=== PATIENT | female | born 1970 | race Caucasian/White ===

== ENCOUNTER 2020-08-08 20:19 | Observation (INO) | payer OTHER ==
--- NOTE | 2020-08-08 20:43 | ED ---
General Adult HPI - General Chief complaint: Abdominal Pain Stated complaint: Abdominal pain Time Seen by Provider: 08/08/20 20:41 Source: patient, EMS Mode of arrival: EMS Limitations: no limitations - History of Present Illness Initial comments: Patient was transferred to our emergency department by ambulance from [facility]. Outside hospital providers, lab results and imaging report were all reviewed myself. Patient states that she has had intermittent epigastric abdominal pain for the past 3 weeks or so. Patient states that her pain has migrated to her right upper quadrant and become more constant and severe since yesterday morning. Patient also admits to having nausea and a couple of bouts of emesis since yesterday morning. Patient denies trauma or injury, fever or chills, headache, chest pain, dyspnea, cough or cold symptoms, diarrhea or constipation, bloody or melanotic stool, hematemesis, back or flank pain, dysuria/hematuria/urinary frequency/urinary symptoms, or any other symptoms or complaints. Patient had a CT abd/pelv done at the outside hospital today, which demonstrated "cholelithiasis, markedly distended gallbladder, gallbladder wall thickening and pericholecystic stranding, findings are consistent with acute cholecystitis". Patient's LFTs are fairly unremarkable and her WBC count is 12.3. Patient was given a dose of IV Zosyn at the outside hospital prior to transfer. - Related Data Home Medications Medication Instructions Recorded Confirmed L.acidoph,Paracasei, B.lactis 1 cap PO HS 08/08/20 08/08/20 [Probiotic] Loratadine [Claritin] 10 mg PO DAILY 08/08/20 08/08/20 Multivitamins, Thera [Multivitamin 1 tab PO HS 08/08/20 08/08/20 (formulary)] [place]-3 Fatty Acids/Fish Oil [Fish 1 cap PO HS 08/08/20 08/08/20 Oil 1,000 mg Softgel] Allergies Allergy/AdvReac Type Severity Reaction Status Date / Time No Known Allergies Allergy Verified 08/08/20 20:59 Review of Systems ROS Statement: Those systems with pertinent positive or pertinent negative responses have been documented in the HPI. ROS Other: All systems not noted in ROS Statement are negative. Past Medical History Past Medical History: GERD/Reflux History of Any Multi-Drug Resistant Organisms: None Reported Additional Past Surgical History / Comment(s): thyroid biopsy Past Psychological History: No Psychological Hx Reported Smoking Status: Never smoker Past Alcohol Use History: None Reported Past Drug Use History: None Reported General Exam Limitations: no limitations General appearance: alert, in no apparent distress Head exam: Present: atraumatic, normocephalic Eye exam: Present: normal appearance, EOMI ENT exam: Present: mucous membranes moist Neck exam: Present: other (Trachea is in midline) Respiratory exam: Present: normal lung sounds bilaterally. Absent: respiratory distress, wheezes, rales, rhonchi Cardiovascular Exam: Present: regular rate, normal rhythm, normal heart sounds, other (Normal radial pulses bilaterally) GI/Abdominal exam: Present: soft, other (Moderate right upper quadrant abdominal tenderness). Absent: distended, guarding, rebound Extremities exam: Absent: tenderness, pedal edema Back exam: Absent: CVA tenderness (R), CVA tenderness (L) Neurological exam: Present: alert, oriented X3. Absent: motor sensory deficit Psychiatric exam: Present: normal affect, normal mood Skin exam: Present: warm, dry, intact, normal color Course Vital Signs 08/08/20 20:22 Temperature 98.5 F Pulse Rate 83 Respiratory 16 Rate Blood Pressure 113/70 O2 Sat by Pulse 95 Oximetry - Reevaluation(s) Reevaluation #1: 08/08/20 21:01 Case, H&P and outside hospital test results were discussed with Dr. Flynn (general surgery). She accepts hospital admission. She recommends repeating the patient's labs, continuing IV Zosyn, ordering IV fluids and putting the patient on a clear liquid diet. She has no further recommendations at this time. Medical Decision Making - Medical Decision Making Outside hospital workup was highly suggestive for acute cholecystitis. Patient's history and physical examination are also suggestive of acute cholecystitis. Patient has no guarding or rebound tenderness on examination in the ED. Case was discussed with Dr. Flynn (general surgery), and she has accepted hospital admission. Disposition Clinical Impression: Acute cholecystitis, Cholelithiasis Disposition: ADMITTED IP TO THIS HOSP Condition: Stable Is patient prescribed a controlled substance at d/c from ED?: No Time of Disposition: 21:02
[2020-08-08] MEDS ORDERED: NALOXONE 0.4 MG/ML 1 ML VIAL IV PRN (21:05)
[2020-08-08] MEDS ORDERED: HYDROmorphone 1 MG/ML 1 ML SYRINGE IVP PRN (21:05)
[2020-08-08] MEDS ORDERED: ONDANSETRON 4 MG/2 ML VIAL IVP PRN (21:05)
[2020-08-08 21:23] LABS: Basophils % (A) 0 %; Eosinophils % (A) 0 %; HCT 40.5 % (34.0-46.0); Lymphocytes # (A) 0.6 k/uL (1.0-4.8); Lymphocytes % (A) 4 %; MCH 31.6 pg (25.0-35.0); MCHC 34.5 g/dL (31.0-37.0); MCV 91.7 fL (80.0-100.0); Mean Platelet Volume 6.1; Monocytes # (A) 0.7 k/uL (0-1.0); Monocytes % (A) 5 %; Neutrophils # (A) 11.5 k/uL (1.3-7.7); Neutrophils % (A) 89 %; Platelet Count 247 k/uL (150-450); RBC 4.41 m/uL (3.80-5.40); RDW 12.1 % (11.5-15.5); WBC 12.9 k/uL (3.8-10.6)
[2020-08-08] MEDS: SODIUM CHLORIDE 0.9% 1,000 ML IV SCH (21:24)
[2020-08-08 21:53] LABS: ALT 46 U/L (4-34); AST 114 U/L (14-36); African American GFR (CKD) >90 (>60 ml/min/1.73 sqM); Albumin 3.5 g/dL (3.5-5.0); Alkaline Phosphatase 114 U/L (38-126); Anion Gap 12 mmol/L; Blood Urea Nitrogen 15 mg/dL (7-17); Calcium 8.9 mg/dL (8.4-10.2); Carbon Dioxide 19 mmol/L (22-30); Chloride 102 mmol/L (98-107); Glucose 102 mg/dL (74-99); Lipase 160 U/L (23-300); Non-African American GFR(CKD) >90 (>60 ml/min/1.73 sqM); Potassium 3.9 mmol/L (3.5-5.1); Sodium 133 mmol/L (137-145); Total Bilirubin 1.6 mg/dL (0.2-1.3); Total Protein 6.7 g/dL (6.3-8.2)
[2020-08-09] MEDS ORDERED: PIPERACILLIN-TAZOBACTAM 4.5 GM in SODIUM CHLORIDE 0.9% 100 ML IVPB SCH ×2
[2020-08-09] MEDS: PIPERACILLIN-TAZOBACTAM 3.375 GM in SODIUM CHLORIDE 0.9% 100 ML IVPB SCH ×2 (01:56→10:34)
[2020-08-09 08:08] VITALS: RESP 16
[2020-08-09 10:24] LABS: Basophils % (A) 0 %; Eosinophils % (A) 0 %; HCT 42.1 % (34.0-46.0); HGB 13.3 gm/dL (11.4-16.0); Lymphocytes # (A) 0.7 k/uL (1.0-4.8); Lymphocytes % (A) 9 %; MCH 30.6 pg (25.0-35.0); MCHC 31.6 g/dL (31.0-37.0); MCV 96.6 fL (80.0-100.0); Mean Platelet Volume 6.6; Monocytes # (A) 0.4 k/uL (0-1.0); Monocytes % (A) 5 %; Neutrophils # (A) 6.3 k/uL (1.3-7.7); Neutrophils % (A) 84 %; Platelet Count 253 k/uL (150-450); RBC 4.36 m/uL (3.80-5.40); RDW 12.7 % (11.5-15.5); WBC 7.5 k/uL (3.8-10.6)
[2020-08-09] MEDS: SODIUM CHLORIDE 0.9% 1,000 ML IV SCH (10:36)
[2020-08-09 10:43] LABS: ALT 39 U/L (4-34); AST 53 U/L (14-36); African American GFR (CKD) >90 (>60 ml/min/1.73 sqM); Albumin 3.4 g/dL (3.5-5.0); Alkaline Phosphatase 99 U/L (38-126); Anion Gap 13 mmol/L; Blood Urea Nitrogen 15 mg/dL (7-17); Calcium 8.7 mg/dL (8.4-10.2); Carbon Dioxide 18 mmol/L (22-30); Chloride 105 mmol/L (98-107); Glucose 84 mg/dL (74-99); Non-African American GFR(CKD) >90 (>60 ml/min/1.73 sqM); Potassium 4.1 mmol/L (3.5-5.1); Sodium 136 mmol/L (137-145); Total Bilirubin 1.3 mg/dL (0.2-1.3); Total Protein 6.5 g/dL (6.3-8.2)
[2020-08-09] MEDS ORDERED: metroNIDAZOLE-NS PMX 500 MG in SALINE 1 100ML.BAG IVPB STA (12:17)
--- NOTE | 2020-08-09 12:33 | P.GSHP ---
History of Present Illness H&P Date: 08/09/20 CHIEF COMPLAINT: Cholecystitis HISTORY OF PRESENT ILLNESS: The patient is a 50-year-old female who presents with history of epigastric including right upper quadrant abdominal pain after eating a yogurt. She regularly eats cheese. She was presented as a transfer from outside institution for diagnostic studies with inflammation of the gallbladder. Since admission, she reports her abdominal pain has resolved. Initial white blood cell count over 12,000 now normal. She reports hunger. She was tolerating liquids yesterday. PAST MEDICAL HISTORY: Please see list PAST SURGICAL HISTORY: Please see list MEDICATIONS: Please see list ALLERGIES: Please see list SOCIAL HISTORY: Please see list FAMILY HISTORY: Please see list REVIEW OF ORGAN SYSTEMS: CONSTITUTIONAL: No reports of fevers or chills. HEENT: Denies any troubles with the vision or hearing. ENDOCRINE: No reports of hypothyroidism. No diabetes. RESPIRATORY: No recent pneumonias. CARDIOVASCULAR: Denies chest pain or palpitations GI: No blood in stools or constipation. MUSCULOSKELETAL: Has occasional joint pain including back pain. NEURO: No seizure disorders or headaches. No recent stroke. PSYCH: No depression or suicidal ideation. GENITOURINARY: No active blood in urine. No urinary hesitancy. HEMATOLOGIC: No personal or family history of DVTs or pulmonary emboli. SKIN: No skin cancer. PHYSICAL EXAM: VITAL SIGNS: Afebrile vital signs stable GENERAL: Well-developed pleasant in no acute distress. HEENT: No scleral icterus. Extraocular movements grossly intact. Moist buccal mucosa. NECK: Supple without lymphadenopathy. CHEST: Unlabored respirations. Equal bilateral excursions. CARDIOVASCULAR: Regular rate regular rhythm rhythm. Distal 2+ pulses. ABDOMEN: Soft, nondistended. No peritonitis. Nontender. MUSCULOSKELETAL: No clubbing, cyanosis, or edema. NEURO: Cranial nerves II to XII within normal limits. No focal or lateralizing signs. PSYCH: Alert and oriented to person, place and time. SKIN: Well-perfused good skin turgor. LABS: WBC over 12,000 now normal at over 8000. LFTs improving. ASSESSMENT: 1. Cholecystitis. PLAN: 1. Her abdominal pain has improved. 2. Trial of diet with clear liquids. 3. Low-fat diet described post discharge. 4. Outpatient cholecystectomy reviewed. 5. Antibiotic management with Zosyn and Flagyl reviewed. Past Medical History Past Medical History: GERD/Reflux History of Any Multi-Drug Resistant Organisms: None Reported Additional Past Surgical History / Comment(s): thyroid biopsy Past Anesthesia/Blood Transfusion Reactions: No Reported Reaction Past Psychological History: No Psychological Hx Reported Smoking Status: Never smoker Past Alcohol Use History: None Reported Past Drug Use History: None Reported - Past Family History Mother Family Medical History: Myocardial Infarction ([place]) Father Family Medical History: Myocardial Infarction ([place]) Medications and Allergies Home Medications Medication Instructions Recorded Confirmed Type L.acidoph,Paracasei, B.lactis 1 cap PO HS 08/08/20 08/08/20 History [Probiotic] Loratadine [Claritin] 10 mg PO DAILY 08/08/20 08/08/20 History Multivitamins, Thera [Multivitamin 1 tab PO HS 08/08/20 08/08/20 History (formulary)] [place]-3 Fatty Acids/Fish Oil [Fish 1 cap PO HS 08/08/20 08/08/20 History Oil 1,000 mg Softgel] Allergies Allergy/AdvReac Type Severity Reaction Status Date / Time No Known Allergies Allergy Verified 08/08/20 20:59 Surgical - Exam Vital Signs Temp Pulse Resp BP Pulse Ox 98.5 F 83 16 113/70 95 08/08/20 20:22 08/08/20 20:22 08/08/20 20:22 08/08/20 20:22 08/08/20 20:22 Results - Labs 08/09/20 10:12 08/09/20 10:12 Abnormal Lab Results - Last 24 Hours (Table) 08/08/20 08/08/20 08/09/20 Range/Units 21:19 21:19 10:12 WBC 12.9 H (3.8-10.6) k/uL Neutrophils # 11.5 H (1.3-7.7) k/uL Lymphocytes # 0.6 L 0.7 L (1.0-4.8) k/uL Sodium 133 L (137-145) mmol/L Carbon Dioxide 19 L (22-30) mmol/L Glucose 102 H (74-99) mg/dL Total Bilirubin 1.6 H (0.2-1.3) mg/dL AST 114 H (14-36) U/L ALT 46 H (4-34) U/L Albumin (3.5-5.0) g/dL 08/09/20 Range/Units 10:12 WBC (3.8-10.6) k/uL Neutrophils # (1.3-7.7) k/uL Lymphocytes # (1.0-4.8) k/uL Sodium 136 L (137-145) mmol/L Carbon Dioxide 18 L (22-30) mmol/L Glucose (74-99) mg/dL Total Bilirubin (0.2-1.3) mg/dL AST 53 H (14-36) U/L ALT 39 H (4-34) U/L Albumin 3.4 L (3.5-5.0) g/dL Diabetes panel 08/08/20 08/09/20 Range/Units 21:19 10:12 Sodium 133 L 136 L (137-145) mmol/L Potassium 3.9 4.1 (3.5-5.1) mmol/L Chloride 102 105 (98-107) mmol/L Carbon Dioxide 19 L 18 L (22-30) mmol/L BUN 15 15 (7-17) mg/dL Creatinine 0.58 0.55 (0.52-1.04) mg/dL Glucose 102 H 84 (74-99) mg/dL Calcium 8.9 8.7 (8.4-10.2) mg/dL AST 114 H 53 H (14-36) U/L ALT 46 H 39 H (4-34) U/L Alkaline Phosphatase 114 99 (38-126) U/L Total Protein 6.7 6.5 (6.3-8.2) g/dL Albumin 3.5 3.4 L (3.5-5.0) g/dL Calcium panel 08/08/20 08/09/20 Range/Units 21:19 10:12 Calcium 8.9 8.7 (8.4-10.2) mg/dL Albumin 3.5 3.4 L (3.5-5.0) g/dL Pituitary panel 08/08/20 08/09/20 Range/Units 21:19 10:12 Sodium 133 L 136 L (137-145) mmol/L Potassium 3.9 4.1 (3.5-5.1) mmol/L Chloride 102 105 (98-107) mmol/L Carbon Dioxide 19 L 18 L (22-30) mmol/L BUN 15 15 (7-17) mg/dL Creatinine 0.58 0.55 (0.52-1.04) mg/dL Glucose 102 H 84 (74-99) mg/dL Calcium 8.9 8.7 (8.4-10.2) mg/dL Adrenal panel 08/08/20 08/09/20 Range/Units 21:19 10:12 Sodium 133 L 136 L (137-145) mmol/L Potassium 3.9 4.1 (3.5-5.1) mmol/L Chloride 102 105 (98-107) mmol/L Carbon Dioxide 19 L 18 L (22-30) mmol/L BUN 15 15 (7-17) mg/dL Creatinine 0.58 0.55 (0.52-1.04) mg/dL Glucose 102 H 84 (74-99) mg/dL Calcium 8.9 8.7 (8.4-10.2) mg/dL Total Bilirubin 1.6 H 1.3 (0.2-1.3) mg/dL AST 114 H 53 H (14-36) U/L ALT 46 H 39 H (4-34) U/L Alkaline Phosphatase 114 99 (38-126) U/L Total Protein 6.7 6.5 (6.3-8.2) g/dL Albumin 3.5 3.4 L (3.5-5.0) g/dL Assessment and Plan (1) Elevated LFTs Current Visit: Yes Status: Acute Code(s): R79.89 - OTHER SPECIFIED ABNORMAL FINDINGS OF BLOOD CHEMISTRY SNOMED Code(s): 289174991 (2) Acute cholecystitis Current Visit: Yes Status: Acute Code(s): K81.0 - ACUTE CHOLECYSTITIS SNOMED Code(s): 51378139 (3) Cholelithiasis Current Visit: Yes Status: Acute Code(s): K80.20 - CALCULUS OF GALLBLADDER W/O CHOLECYSTITIS W/O OBSTRUCTION SNOMED Code(s): 075822295
--- NOTE | 2020-08-09 12:38 | P.DS ---
Providers Date of admission: 08/08/20 21:05 Expected date of discharge: 08/09/20 Attending physician: Danette Flynn Primary care physician: Avelino Laird MD - Discharge Diagnosis(es) (1) Elevated LFTs Current Visit: Yes Status: Acute (2) Acute cholecystitis Current Visit: Yes Status: Acute (3) Cholelithiasis Current Visit: Yes Status: Acute Hospital Course: CHIEF COMPLAINT: Cholecystitis HISTORY OF PRESENT ILLNESS: The patient is a 50-year-old female who presents with history of epigastric including right upper quadrant abdominal pain after eating a yogurt. She regularly eats cheese. She was presented as a transfer from outside institution for diagnostic studies with inflammation of the gallbladder. Since admission, she reports her abdominal pain has resolved. Initial white blood cell count over 12,000 now normal. She reports hunger. She was tolerating liquids yesterday. PAST MEDICAL HISTORY: Please see list PAST SURGICAL HISTORY: Please see list MEDICATIONS: Please see list ALLERGIES: Please see list SOCIAL HISTORY: Please see list FAMILY HISTORY: Please see list REVIEW OF ORGAN SYSTEMS: CONSTITUTIONAL: No reports of fevers or chills. HEENT: Denies any troubles with the vision or hearing. ENDOCRINE: No reports of hypothyroidism. No diabetes. RESPIRATORY: No recent pneumonias. CARDIOVASCULAR: Denies chest pain or palpitations GI: No blood in stools or constipation. MUSCULOSKELETAL: Has occasional joint pain including back pain. NEURO: No seizure disorders or headaches. No recent stroke. PSYCH: No depression or suicidal ideation. GENITOURINARY: No active blood in urine. No urinary hesitancy. HEMATOLOGIC: No personal or family history of DVTs or pulmonary emboli. SKIN: No skin cancer. PHYSICAL EXAM: VITAL SIGNS: Afebrile vital signs stable GENERAL: Well-developed pleasant in no acute distress. HEENT: No scleral icterus. Extraocular movements grossly intact. Moist buccal mucosa. NECK: Supple without lymphadenopathy. CHEST: Unlabored respirations. Equal bilateral excursions. CARDIOVASCULAR: Regular rate regular rhythm rhythm. Distal 2+ pulses. ABDOMEN: Soft, nondistended. No peritonitis. Nontender. MUSCULOSKELETAL: No clubbing, cyanosis, or edema. NEURO: Cranial nerves II to XII within normal limits. No focal or lateralizing signs. PSYCH: Alert and oriented to person, place and time. SKIN: Well-perfused good skin turgor. LABS: WBC over 12,000 now normal at over 8000. LFTs improving. ASSESSMENT: 1. Cholecystitis. PLAN: 1. Her abdominal pain has improved. 2. Trial of diet with clear liquids. 3. Low-fat diet described post discharge. 4. Outpatient cholecystectomy reviewed. 5. Antibiotic management with Zosyn and Flagyl reviewed 6. I personally reviewed gallstone diet sheet including menu options. She had tolerated diet. Patient was clinically stable for discharge. Patient Condition at Discharge: Stable Plan - Discharge Summary Discharge Rx Participant: No New Discharge Prescriptions: New RX: Ibuprofen [Motrin] 600 mg PO Q8HR PRN #30 tab PRN Reason: Pain Continue RX: Loratadine [Claritin] 10 mg PO DAILY RX: L.acidoph,Paracasei, B.lactis [Probiotic] 1 cap PO HS Discontinued Multivitamins, Thera [Multivitamin (formulary)] 1 tab PO HS [place]-3 Fatty Acids/Fish Oil [Fish Oil 1,000 mg Softgel] 1 cap PO HS Discharge Medication List RX: L.acidoph,Paracasei, B.lactis [Probiotic] 1 cap PO HS 08/08/20 [History] RX: Loratadine [Claritin] 10 mg PO DAILY 08/08/20 [History] RX: Ibuprofen [Motrin] 600 mg PO Q8HR PRN #30 tab 08/09/20 [Rx] Follow up Appointment(s)/Referral(s): Danette Flynn MD [STAFF PHYSICIAN] - 08/13/20 Avelino Laird MD [Primary Care Provider] - 1-2 days Patient Instructions/Handouts: Cholecystitis (ED), Biliary Colic (GEN), Low Fat Diet (DC) Activity/Diet/Wound Care/Special Instructions: Continue low fat diet. Avoid cheese, saturated fatty food, greasy foods, fried foods, processed foods. Please review low-fat diet and gallbladder diet list. Discharge Disposition: HOME SELF-CARE
[2020-08-09 15:44] VITALS: BP 120/74; PULSE 77; TEMP 98
== END 2020-08-09 17:21 | disposition home or self-care (01) ==
LOC: SUPCPDRO 20:19 → EC 20:19 → 1SOBS 21:05
PROVIDERS: ADMIT Surgery Plastic and Reconstructive Surgery; ATTEND Surgery Plastic and Reconstructive Surgery
DX: K80.00 Calculus of gallbladder with acute cholecystitis without obstruction (principal); K21.9 Gastro-esophageal reflux disease without esophagitis; Z79.899 Other long term (current) drug therapy; Z98.890 Other specified postprocedural states; Z82.49 Family history of ischemic heart disease and other diseases of the circulatory system
CPT/HCPCS: 96365; 96366; 99285; 80053 ×2; 83690; 85025 ×2; G0378 ×2; J2543